=== PATIENT | male | born 1970 | race Two or more races ===

== ENCOUNTER 2021-03-30 06:37 | Emergency (ER) | payer BC ==
[~2021-03-30] VITALS: Ht 170.2 cm; Wt 92.5 kg
[2021-03-30] MEDS ORDERED: PEPCID AC20 MG PO (17:31)
[2021-03-30] MEDS ORDERED: DICLOFENAC POTA50 MG PO (17:31)
== END 2021-03-30 17:53 ==
LOC: ER 06:37
DX: K76.6 Portal hypertension (principal); M79.671 Pain in right foot; Z03.818 Encounter for observation for suspected exposure to other biological agents ruled out

== ENCOUNTER 2021-04-10 06:17 | Emergency (ER) | payer BC ==
[~2021-04-10] VITALS: Ht 167.6 cm; Wt 95.3 kg
[~2021-04-10 06:17] MED LIST: DICLOFENAC POTA50 MG PO; PEPCID AC20 MG PO
[2021-04-10] MEDS ORDERED: FORTAMET500 MG (06:30)
== END 2021-04-10 13:03 | disposition home or self-care (01) ==
LOC: ER 06:17
DX: M79.602 Pain in left arm (principal); R60.0 Localized edema; R17 Unspecified jaundice; R06.02 Shortness of breath; Z20.822 Contact with and (suspected) exposure to COVID-19